=== PATIENT | male | born 1960 | race Caucasian/White ===

== ENCOUNTER 2020-11-07 14:09 | Day surgery (SDC) | payer BC ==
[2020-11-07] MEDS ORDERED: Xylocaine 1% Vial 30 ML PF IJ ONE (14:10)
[2020-11-07] MEDS ORDERED: Depo-Medrol 40 MG/ML IM ONE (14:10)
[2020-11-07] MEDS ORDERED: BUPIVACAINE 0.5% VIAL IJ ONE (14:10)
--- NOTE | 2020-11-07 16:38 | XRAY ---
Indication: Left SI joint injection. Intraoperative fluoroscopy provided for 8 seconds. 2 digital spot images submitted for interpretation demonstrates posterior needle tip projecting over the inferior left SI joint. Correlate with intraoperative findings/report.
--- NOTE | 2020-11-07 16:41 | XRAY ---
8 seconds fluoroscopy time in surgery for injection of the left SI joint.
== END 2020-11-07 16:20 | disposition home or self-care (01) ==
LOC: SDC-PAIN 14:09
PROVIDERS: ATTEND Psychiatry & Neurology Pain Medicine
DX: M46.1 Sacroiliitis, not elsewhere classified (principal); Z79.899 Other long term (current) drug therapy; K21.9 Gastro-esophageal reflux disease without esophagitis
CPT/HCPCS: 27096; 72020; 77002; J1030; J2001; G0260

== ENCOUNTER 2021-01-16 16:53 | Day surgery (SDC) | payer BC ==
[2021-01-16] MEDS ORDERED: BUPIVACAINE 0.5% VIAL IJ ONE (16:54)
[2021-01-16] MEDS ORDERED: Depo-Medrol 40 MG/ML IM ONE (16:54)
[2021-01-16] MEDS ORDERED: Xylocaine 1% Vial 30 ML PF IJ ONE (16:54)
--- NOTE | 2021-01-16 20:09 | XRAY ---
Indication: Left hip injection. Intraoperative fluoroscopy provided for 13 seconds. Single digital spot image submitted for interpretation demonstrates needle tip just lateral to the left femur neck. Small amount of contrast injected for needle tip placement. Correlate with intraoperative findings/report.
--- NOTE | 2021-01-17 08:37 | XRAY ---
13 seconds fluoroscopy time in surgery for intra-articular injection of the left hip.
== END 2021-01-16 18:52 | disposition home or self-care (01) ==
LOC: SDC-PAIN 16:53
PROVIDERS: ATTEND Psychiatry & Neurology Pain Medicine
DX: M16.12 Unilateral primary osteoarthritis, left hip (principal); Z79.899 Other long term (current) drug therapy
CPT/HCPCS: 20610; 73501; 77002; J1030; J2001; Q9966